=== PATIENT | female | born 1935 | race African-American/Black ===

== ENCOUNTER 2017-02-24 18:01 | Emergency (ER) | payer MEDICARE, MEDICAID ==
--- NOTE | 2017-02-24 21:35 | RAD ---
RIGHT WRIST THREE VIEWS: Date: 02-24-17 FINDINGS: An impacted fracture of the distal radius is present, as well as a fracture through the ulnar styloi d process. Some of the radial fragments extend into the radiocarpal joint. On the lateral view dorsa l angulation of the radial fragment is quite minimal. The carpals appeared intact though it is diffi cult to see the scaphoid as well as one might like. IMPRESSION: Fractures through the distal radius and ulna. POS: HOME
== END 2017-02-24 19:12 | disposition home or self-care (01) ==
LOC: BURERS 18:01
DX: S52.531A Colles' fracture of right radius, initial encounter for closed fracture (principal); S52.201A Unspecified fracture of shaft of right ulna, initial encounter for closed fracture; F03.90 Unspecified dementia, unspecified severity, without behavioral disturbance, psychotic disturbance, mood disturbance, and anxiety; Z79.899 Other long term (current) drug therapy; W18.30XA Fall on same level, unspecified, initial encounter